=== PATIENT | female | born 1990 | race Two or more races ===

== ENCOUNTER 2017-09-01 13:05 | Observation (INO) | payer OTHER | END 2017-09-01 14:20 | disposition home or self-care (01) | DRG 782 | LOC: LDRP 13:05 | PROVIDERS: ADMIT Obstetrics & Gynecology; ATTEND Obstetrics & Gynecology | DX: O26.853 Spotting complicating pregnancy, third trimester (principal); O36.8130 Decreased fetal movements, third trimester, not applicable or unspecified; Z3A.33 33 weeks gestation of pregnancy | CPT/HCPCS: 59025; 76818; 81002; G0378 ==

== ENCOUNTER 2017-10-11 00:28 | Observation (INO) | payer OTHER ==
[2017-10-12] MEDS ORDERED: FERR-7 PO (08:18)
[2017-10-12] MEDS ORDERED: PREN-96 PO (08:18)
== END 2017-10-11 05:54 | disposition home or self-care (01) | DRG 782 ==
LOC: LDRP 00:28 → EDUNIT# 00:28
PROVIDERS: ADMIT Obstetrics & Gynecology; ATTEND Obstetrics & Gynecology
DX: O62.9 Abnormality of forces of labor, unspecified (principal); O46.93 Antepartum hemorrhage, unspecified, third trimester; Z3A.38 38 weeks gestation of pregnancy
CPT/HCPCS: 59025; 81002; G0378

== ENCOUNTER 2017-10-12 07:40 | Inpatient (IN) | payer OTHER ==
[~2017-10-12] VITALS: Ht 149.9 cm; Wt 82.6 kg
[2017-10-12] MEDS ORDERED: PREN-96 PO (08:18)
[2017-10-12] MEDS ORDERED: FERR-7 PO (08:18)
[2017-10-12] MEDS ORDERED: LACTATED RINGER'S 1,000 ML IV SCH (08:41)
[2017-10-12] MEDS ORDERED: METHYLERGONOVINE MALEATE 0.2 MG/ML AMP IM PRN (08:45)
[2017-10-12] MEDS ORDERED: NALBUPHINE HCL 10 MG/1ml INJECTION IV PRN (08:45)
[2017-10-12] MEDS ORDERED: LIDOCAINE 2%HCL (LOCAL ANESTH.) INJ 20ML MDV IJ ONE (08:45)
[2017-10-12] MEDS ORDERED: DERMOPLAST 60ML BOTTLE TOP PRN (08:45)
[2017-10-12] MEDS ORDERED: CARBOPROST TROMETHAMINE 250 MCG/1ML VIAL IM PRN (08:45)
[2017-10-12] MEDS ORDERED: WITCH HAZEL-GLYCERIN PAD TOP PRN (08:45)
[2017-10-12] MEDS ORDERED: PHISODERM TOP SOLN 240ML BTL TOP PRN (08:45)
[2017-10-12] MEDS ORDERED: LIDOCAINE 2%HCL (LOCAL ANESTH.) INJ 20ML MDV ONE (08:49)
[2017-10-12] MEDS ORDERED: LACT. RINGERS/OXYTOCIN 20UNITS 1,000 ML IV ONE (08:50)
[2017-10-12 09:27] LABS: Basophils # (auto) 0 uL; Basophils % (auto) 0.3 % (0.0-2.0); Eosinophils # (auto) 0 uL; Eosinophils % (auto) 0.1 % (0.0-7.0); Monocytes # (auto) 0.4 uL; Neutrophils # (auto) 8.7 uL
[2017-10-12 09:30] LABS: Hematocrit 32.8 % (36.0-46.0); Hemoglobin 10.6 g/dL (12.2-16.2); Lymphocytes # (auto) 1.4 uL; Lymphocytes % (auto) 13.5 % (10.0-50.0); Mean Corpuscular Hemoglobin 26.4 pg (28.0-32.0); Mean Corpuscular Hgb Conc. 32.4 g/dL (32.0-36.0); Mean Corpuscular Volume 81.6 fL (80.0-100.0); Monocytes % (auto) 3.8 % (0.0-12.0); Neutrophils % (auto) 82.3 % (37.0-80.0); Platelet Count (auto) 282 10^3/uL (140-450); Red Blood Cells 4.02 10^6/uL (4.0-5.20); Red Cell Distribution Width 16.5 % (11.8-14.3); White Blood Cell 10.6 10^3/uL (4.4-10.8)
[2017-10-12 09:43] LABS: INR 0.86 (0.9-1.15); Partial Thromboplastin Time 25.2 sec (22.64-33.71); Prothrombin Time 9.4 sec (9.37-12.3)
[2017-10-12 09:50] LABS: Albumin 2.8 g/dL (3.4-5.0); BUN/Creatinine Ratio 13.3; Bilirubin, Total 0.4 mg/dL (0.2-1.0); Calcium 8.6 mg/dL (8.5-10.1); Potassium 3.9 mmol/L (3.5-5.1); Total Protein 7.4 g/dL (6.4-8.2)
[2017-10-12 09:50] LABS: Urine Bacteria FEW /hpf (None Seen); Urine Blood 2+ /uL (Negative); Urine Mucus FEW (None Seen); Urine Specific Gravity 1.029 (1.001-1.035); Urine WBC 15 /hpf (0 - 5)
[2017-10-12] MEDS ORDERED: LACT. RINGERS/OXYTOCIN 20UNITS 500 ML IV ONE (11:16)
[2017-10-12] MEDS ORDERED: ACETAMINOPHEN 325 MG TAB PO PRN (11:30)
[2017-10-12] MEDS: IBUPROFEN 600 MG TAB PO PRN ×3 (11:30→19:10)
[2017-10-12] MEDS: LACT. RINGERS/OXYTOCIN 20UNITS 1,000 ML IV SCH ×2 (11:40→16:19)
[2017-10-12 17:26] VITALS: BP 107/62
[2017-10-12 23:00] VITALS: BP 98/58
[2017-10-13 04:00] VITALS: BP 105/50
[2017-10-13 07:00] VITALS: BP 104/61
[2017-10-13] MEDS ORDERED: MEASLES, MUMPS & RUBELLA VAC(MMRII) 0.5ML SC ONE (09:30)
[2017-10-13] MEDS ORDERED: TETANUS-DIPTH-ACEL PERTUSSIS 0.5ML SYRG IM ONE (09:30)
[2017-10-13 12:00] VITALS: BP 116/58
[2017-10-13 12:15] VITALS: BP 116/58
== END 2017-10-13 13:15 | disposition home or self-care (01) | DRG 775 ==
LOC: LDRP 07:40 → OBSVTOIN 07:40 → LDRP 15:14
PROVIDERS: ADMIT Obstetrics & Gynecology; ATTEND Obstetrics & Gynecology
PROC: 10E0XZZ Delivery of Products of Conception, External Approach (ICD-10-PCS; principal; 2017-10-12)
PROC: 0KQM0ZZ Repair Perineum Muscle, Open Approach (ICD-10-PCS; 2017-10-12)
PROC: 10907ZC Drainage of Amniotic Fluid, Therapeutic from Products of Conception, Via Natural or Artificial Opening (ICD-10-PCS; 2017-10-12)
DX: O62.3 Precipitate labor (principal); O70.1 Second degree perineal laceration during delivery; Z37.0 Single live birth; Z3A.39 39 weeks gestation of pregnancy; Z23 Encounter for immunization
CPT/HCPCS: 36415; 59025; 59409; 80053; 81001; 81002; 85025; 85610; 85730; 86850; 86900; 86901; 90471; 90472; 90715; 96365; 96366; J2590

== ENCOUNTER → 2018-02-04 | Outpatient (CLI) | payer OTHER ==
[~2018-02-04] MED LIST: FERR-7 PO; PREN-96 PO
== END | disposition home or self-care (01) ==
LOC: LAB 10:00
PROVIDERS: ATTEND Specialist
DX: R87.610 Atypical squamous cells of undetermined significance on cytologic smear of cervix (ASC-US) (principal)

== ENCOUNTER → 2018-05-02 | Outpatient (CLI) | payer OTHER ==
[2018-05-02 09:51] LABS: Basophils # (auto) 0 uL; Basophils % (auto) 0.3 % (0.0-2.0); Eosinophils # (auto) 0 uL; Eosinophils % (auto) 0.5 % (0.0-7.0); Hematocrit 44.4 % (36.0-46.0); Hemoglobin 14.6 g/dL (12.2-16.2); Lymphocytes # (auto) 2.1 uL; Mean Corpuscular Hemoglobin 27.4 pg (28.0-32.0); Mean Corpuscular Hgb Conc. 32.8 g/dL (32.0-36.0); Mean Corpuscular Volume 83.5 fL (80.0-100.0); Monocytes # (auto) 0.4 uL; Monocytes % (auto) 4.3 % (0.0-12.0); Neutrophils # (auto) 6.2 uL; Neutrophils % (auto) 70.9 % (37.0-80.0); Platelet Count (auto) 325 10^3/uL (140-450); Red Blood Cells 5.31 10^6/uL (4.0-5.20); Red Cell Distribution Width 15.3 % (11.8-14.3); White Blood Cell 8.7 10^3/uL (4.4-10.8)
[2018-05-02 10:54] LABS: Alcohol, Urine < 3.0 mg/dL (0-5); Amphetamine Screen, Urine NEGATIVE (NEGATIVE); Barbiturate Scree,Urine NEGATIVE (NEGATIVE); Benzodiazephine Screen, Urine NEGATIVE (NEGATIVE); Cannabinoid Screen, Urine NEGATIVE (NEGATIVE); Cocaine Screen, Urine NEGATIVE (NEGATIVE); Opiate Scree,Urine NEGATIVE (NEGATIVE); Phencyclidine Screen, Urine NEGATIVE (NEGATIVE)
== END | disposition home or self-care (01) ==
LOC: LAB 09:10
PROVIDERS: ATTEND Obstetrics & Gynecology
DX: Z34.80 Encounter for supervision of other normal pregnancy, unspecified trimester (principal); Z3A.00 Weeks of gestation of pregnancy not specified
CPT/HCPCS: 36415; 80307; 83036; 85025; 86703; 86762; 86850; 86900; 86901; 87086; 87340; 87591

== ENCOUNTER → 2018-06-13 | Outpatient (CLI) | payer OTHER | END | disposition home or self-care (01) | LOC: LAB 15:28 | PROVIDERS: ATTEND Obstetrics & Gynecology | DX: Z34.80 Encounter for supervision of other normal pregnancy, unspecified trimester (principal); Z20.2 Contact with and (suspected) exposure to infections with a predominantly sexual mode of transmission ==

== ENCOUNTER 2018-06-14 14:06 | Emergency (ER) | payer OTHER ==
[~2018-06-14] VITALS: Ht 149.9 cm; Wt 75.3 kg
[2018-06-14 14:34] VITALS: BP 99/57
== END 2018-06-14 14:34 | disposition home or self-care (01) ==
LOC: ER 14:06
DX: O99.612 Diseases of the digestive system complicating pregnancy, second trimester (principal); K42.9 Umbilical hernia without obstruction or gangrene; Z3A.21 21 weeks gestation of pregnancy
CPT/HCPCS: 59025; 81002

== ENCOUNTER 2018-06-14 15:05 | Observation (INO) | payer OTHER | END 2018-06-14 15:25 | disposition home or self-care (01) | DRG 833 | LOC: LDRP 15:05 | PROVIDERS: ADMIT Obstetrics & Gynecology; ATTEND Obstetrics & Gynecology | DX: O26.899 Other specified pregnancy related conditions, unspecified trimester (principal); R10.9 Unspecified abdominal pain; Z3A.00 Weeks of gestation of pregnancy not specified | CPT/HCPCS: G0378 ==

== ENCOUNTER 2018-09-16 10:10 | Observation (INO) | payer OTHER | END 2018-09-16 11:00 | disposition home or self-care (01) | DRG 833 | LOC: LDRP 10:10 | PROVIDERS: ADMIT Specialist; ATTEND Specialist | DX: O98.513 Other viral diseases complicating pregnancy, third trimester (principal); O26.893 Other specified pregnancy related conditions, third trimester; R51 Headache; R10.30 Lower abdominal pain, unspecified; R05 Cough; M54.9 Dorsalgia, unspecified; Z3A.33 33 weeks gestation of pregnancy | CPT/HCPCS: 59025; 81002; G0378 ==

== ENCOUNTER 2018-09-17 10:52 | Emergency (ER) | payer OTHER ==
[~2018-09-17] VITALS: Ht 149.9 cm; Wt 78.0 kg
[2018-09-17 13:41] VITALS: BP 131/72
== END 2018-09-17 13:44 | disposition home or self-care (01) ==
LOC: ER 10:52
DX: O99.513 Diseases of the respiratory system complicating pregnancy, third trimester (principal); J40 Bronchitis, not specified as acute or chronic; O99.713 Diseases of the skin and subcutaneous tissue complicating pregnancy, third trimester; L53.8 Other specified erythematous conditions; Z3A.34 34 weeks gestation of pregnancy

== ENCOUNTER → 2018-09-17 | Outpatient (CLI) | payer OTHER ==
[2018-09-17 15:04] LABS: Alanine Aminotransferase 18 U/L (13-56); Albumin 2.8 g/dL (3.4-5.0); Anion Gap 6 (5-15); Aspartate Aminotransferase 24 U/L (15-37); BUN/Creatinine Ratio 6.6; Blood Urea Nitrogen 4 mg/dL (7-18); Calcium 8.2 mg/dL (8.5-10.1); Carbon Dioxide 24 mmol/L (21-32); Chloride 107 mmol/L (98-107); GFR African American > 60 mL/min; GFR Non-African American > 60 mL/min; Glucose 100 mg/dL (74-106); Potassium 3.6 mmol/L (3.5-5.1); Sodium 137 mmol/L (136-145)
[2018-09-17 15:07] LABS: Alkaline Phosphatase 168 U/L (45-117); Bilirubin, Total 0.4 mg/dL (0.2-1.0)
== END | disposition home or self-care (01) ==
LOC: LAB 14:23
PROVIDERS: ATTEND Specialist
DX: O26.613 Liver and biliary tract disorders in pregnancy, third trimester (principal); B01.89 Other varicella complications; Z3A.35 35 weeks gestation of pregnancy
CPT/HCPCS: 36415; 80053; 86787

== ENCOUNTER → 2018-09-24 | Outpatient (CLI) | payer OTHER ==
[2018-09-24 09:34] LABS: Basophils # (auto) 0 uL; Basophils % (auto) 0.4 % (0.0-2.0); Eosinophils # (auto) 0.1 uL; Hemoglobin 10.4 g/dL (12.2-16.2); Lymphocytes # (auto) 2.9 uL; Neutrophils # (auto) 4.9 uL; White Blood Cell 8.3 10^3/uL (4.4-10.8)
[2018-09-24 09:37] LABS: Hematocrit 31.2 % (36.0-46.0); Lymphocytes % (auto) 34.4 % (10.0-50.0); Mean Corpuscular Hemoglobin 26.2 pg (28.0-32.0); Mean Corpuscular Hgb Conc. 33.2 g/dL (32.0-36.0); Monocytes # (auto) 0.4 uL; Monocytes % (auto) 5.3 % (0.0-12.0); Neutrophils % (auto) 58.9 % (37.0-80.0); Platelet Count (auto) 281 10^3/uL (140-450); Red Blood Cells 3.95 10^6/uL (4.0-5.20)
== END | disposition home or self-care (01) ==
LOC: LAB 09:00
PROVIDERS: ATTEND Specialist
DX: O23.593 Infection of other part of genital tract in pregnancy, third trimester (principal); Z3A.34 34 weeks gestation of pregnancy
CPT/HCPCS: 36415; 85025; 87081

== ENCOUNTER → 2020-03-01 | Outpatient (CLI) | payer OTHER ==
[~2020-03-01] MED LIST changes: -FERR-7 PO
== END | disposition home or self-care (01) ==
LOC: LAB 12:05
PROVIDERS: ATTEND Specialist
DX: Z34.80 Encounter for supervision of other normal pregnancy, unspecified trimester (principal); N76.0 Acute vaginitis; N93.9 Abnormal uterine and vaginal bleeding, unspecified; Z3A.00 Weeks of gestation of pregnancy not specified
CPT/HCPCS: 87070; 87086

== ENCOUNTER 2020-07-29 14:00 | Inpatient (IN) | payer OTHER ==
[~2020-07-29] VITALS: Ht 149.9 cm; Wt 78.5 kg
[2020-07-29] MEDS ORDERED: LIDOCAINE 2%HCL (LOCAL ANESTH.) INJ 20ML MDV IJ PRN (15:00)
[2020-07-29] MEDS ORDERED: PHISODERM TOP SOLN 240ML BTL TOP PRN (15:00)
[2020-07-29] MEDS ORDERED: PENICILLIN G POT 5MIL/D5 50ML 50 ML IV ONE (15:00)
[2020-07-29] MEDS ORDERED: LACTATED RINGER'S 1,000 ML IV SCH (15:00)
[2020-07-29] MEDS ORDERED: WITCH HAZEL-GLYCERIN PAD TOP PRN (15:00)
[2020-07-29] MEDS ORDERED: DERMOPLAST 60ML BOTTLE TOP PRN (15:00)
[2020-07-29] MEDS ORDERED: LACT. RINGERS/OXYTOCIN 20UNITS 1,000 ML IV PRN (15:00)
[2020-07-29 15:32] LABS: Basophils # (auto) 0 10 ^3/uL (0-0.2); Eosinophils # (auto) 0 10 ^3/uL (0-0.8); Eosinophils % (auto) 0.1 % (0.0-7.0); Monocytes # (auto) 0.4 10 ^3/uL (0-1.3); Red Cell Distribution Width 16.9 % (11.8-14.3)
[2020-07-29 15:34] LABS: Basophils % (auto) 0.3 % (0.0-2.0); Hemoglobin 10.8 g/dL (12.2-16.2); Lymphocytes # (auto) 2.1 10 ^3/uL (0.4-5.4); Lymphocytes % (auto) 23.9 % (10.0-50.0); Mean Corpuscular Hemoglobin 24.8 pg (28.0-32.0); Mean Corpuscular Hgb Conc. 31.8 g/dL (32.0-36.0); Mean Corpuscular Volume 78.1 fL (80.0-100.0); Monocytes % (auto) 4.6 % (0.0-12.0); Neutrophils # (auto) 6.3 10 ^3/uL (1.6-8.6); Neutrophils % (auto) 71.1 % (37.0-80.0); Platelet Count (auto) 287 10^3/uL (140-450); Red Blood Cells 4.35 10^6/uL (4.0-5.20); White Blood Cell 8.8 10^3/uL (4.4-10.8)
[2020-07-29 15:48] LABS: Calcium 8.5 mg/dL (8.5-10.1); Potassium 4.2 mmol/L (3.5-5.1)
[2020-07-29 15:52] LABS: BUN/Creatinine Ratio 7.1; Bilirubin, Total 0.4 mg/dL (0.2-1.0); Total Protein 7.1 g/dL (6.4-8.2)
[2020-07-29 15:56] LABS: INR 0.92 (0.9-1.15); Partial Thromboplastin Time 24.3 sec (23.0-31.2)
[2020-07-29 15:58] LABS: Urine Bacteria NONE SEEN /hpf (None Seen); Urine Blood Negative /uL (Negative); Urine Specific Gravity 1.006 (1.001-1.035); Urine WBC 2 /hpf (0 - 5)
[2020-07-29 16:09] LABS: Amphetamine Screen, Urine NEGATIVE (NEGATIVE); Benzodiazephine Screen, Urine NEGATIVE (NEGATIVE); Cannabinoid Screen, Urine NEGATIVE (NEGATIVE); Cocaine Screen, Urine NEGATIVE (NEGATIVE); Phencyclidine Screen, Urine NEGATIVE (NEGATIVE)
[2020-07-29 16:11] LABS: Barbiturate Scree,Urine NEGATIVE (NEGATIVE); Opiate Scree,Urine NEGATIVE (NEGATIVE)
[2020-07-29] MEDS: IBUPROFEN 600 MG TAB PO PRN ×2 (16:49→19:53)
[2020-07-29 19:00] VITALS: BP 102/62
[2020-07-29] MEDS ORDERED: PENICILLIN G POTASSIUM 2,500,000 UNITS in D5W 5% 50 ML IV SCH (19:00)
[2020-07-29] MEDS ORDERED: INFLUENZA QUAD 2020-2021 0.5 ML SYRG IM ONE (21:45)
[2020-07-29] MEDS ORDERED: TETANUS-DIPTH-ACEL PERTUSSIS 0.5ML SYR Tdap IM ONE (21:45)
[2020-07-29 23:00] VITALS: BP 113/72
[2020-07-30 03:00] VITALS: BP 110/59
[2020-07-30 07:00] VITALS: BP 104/63
[2020-07-30 11:00] VITALS: BP 110/68
[2020-07-30 15:00] VITALS: BP 107/59
[2020-07-31 04:06] LABS: RPR Non Reactive (Non Reactive)
== END 2020-07-30 18:00 | disposition home or self-care (01) | DRG 807 ==
LOC: LDRP 14:00 → OBSVTOIN 15:16 → LDRP 15:17
PROVIDERS: ADMIT Specialist; ATTEND Specialist
PROC: 10E0XZZ Delivery of Products of Conception, External Approach (ICD-10-PCS; principal; 2020-07-29)
DX: O80 Encounter for full-term uncomplicated delivery (principal); Z37.0 Single live birth; Z3A.39 39 weeks gestation of pregnancy; Z20.828 Contact with and (suspected) exposure to other viral communicable diseases
CPT/HCPCS: 36415; 59025; 59409; 80053; 80307; 81001; 81002; 85025; 85610; 85730; 86592; 86850; 86900; 86901; 87426; 90715; 96360; 96365; 96366; 96372; G0378; J2540; J2590; J7060